=== PATIENT | male | born 1985 | race Two or more races ===

== ENCOUNTER 2018-05-03 00:44 | Emergency (ER) | payer SELFPAY ==
[~2018-05-03] VITALS: Ht 182.9 cm; Wt 104.0 kg
[2018-05-03 02:47] VITALS: BP 108/72
== END 2018-05-03 02:50 | disposition home or self-care (01) ==
LOC: ER 00:44
DX: R42 Dizziness and giddiness (principal)
CPT/HCPCS: 99283; Z7610